=== PATIENT | male | born 1970 | race Two or more races ===

== ENCOUNTER 2022-03-15 10:03 | Emergency (ER) | payer OTHER ==
[~2022-03-15] VITALS: Ht 177.8 cm; Wt 99.8 kg
[2022-03-15] MEDS ORDERED: TOPROL XL50 M1 PO (10:30)
[2022-03-15] MEDS ORDERED: MONTELUKAST SODI4 M1 PO (10:30)
[2022-03-15] MEDS ORDERED: ALBUTEROL1.25 MG/3 IH (10:31)
[2022-03-15] MEDS ORDERED: TUSSIN DM SYRU118 ML PO (14:35)
[2022-03-15] MEDS ORDERED: MEDROLPACK PO (14:37)
== END 2022-03-15 14:41 | disposition home or self-care (01) ==
LOC: ER 10:03
DX: B34.9 Viral infection, unspecified (principal); Z20.822 Contact with and (suspected) exposure to COVID-19